=== PATIENT | male | born 1990 | race African-American/Black ===

== ENCOUNTER 2017-01-14 04:11 | Inpatient (IN) | payer MEDICAID ==
[~2017-01-14] VITALS: Ht 165.1 cm; Wt 68.7 kg
[~2017-01-14 04:11] MED LIST: LAMO100 PO; RISP1 PO
[2017-01-14] MEDS ORDERED: ZOLPIDEM TARTRATE 10 MG TABLET PO PRN (06:00)
[2017-01-14] MEDS ORDERED: QUEtiapine FUMARATE 100 MG TABLET PO PRN (06:00)
[2017-01-14] MEDS ORDERED: LORazepam 2 MG TABLET PO PRN (06:00)
[2017-01-14 06:20] VITALS: BP 112/69
[2017-01-14] MEDS ORDERED: INFLUENZA VIRUS VACCINE QVS 2016-17 (3YR+)/PF 60 MCG/0.5 ML SYRINGE IM ONE (06:30)
[2017-01-14] MEDS ORDERED: ONDANSETRON HCL 4 MG TABLET PO PRN (09:45)
[2017-01-14] MEDS ORDERED: PETROLATUM,WHITE 71 GM JELLY TP PRN (09:45)
[2017-01-14] MEDS ORDERED: ACETAMINOPHEN 325 MG TABLET PO PRN (09:45)
[2017-01-14] MEDS ORDERED: CloNIDine HCL 0.1 MG TABLET PO PRN (09:45)
[2017-01-14] MEDS ORDERED: MAGNESIUM HYDROXIDE SUSPENSION 30 ML UDCUP PO PRN (09:45)
[2017-01-14] MEDS ORDERED: LOPERAMIDE HCL 2 MG CAPSULE PO PRN (09:45)
[2017-01-14] MEDS ORDERED: ALBUTEROL SULFATE HFA 90 MCG/PUFF 8 GM INHALER IH PRN (09:45)
[2017-01-14] MEDS ORDERED: MAG HYDROX/AL HYDROX/SIMETH ES 30 ML SUSPENSION UDCUP PO PRN (09:45)
[2017-01-14] MEDS ORDERED: BACITRACIN 28.4 GM OINTMENT TP PRN (09:45)
[2017-01-14] MEDS ORDERED: BENZOCAINE/MENTHOL LOZENGE MM PRN (09:45)
[2017-01-14] MEDS ORDERED: IBUPROFEN 600 MG TABLET PO PRN (09:45)
[2017-01-14] MEDS: LamoTRIgine 100 MG TABLET PO SCH (09:54)
[2017-01-14] MEDS: RisperiDONE 1 MG TABLET PO SCH ×2 (09:54→16:22)
[2017-01-14 16:00] VITALS: BP 114/69
[2017-01-15 06:42] VITALS: BP 99/60
[2017-01-15 08:07] VITALS: BP 118/59
[2017-01-15] MEDS: RisperiDONE 1 MG TABLET PO SCH ×2 (09:29→16:42)
[2017-01-15] MEDS: LamoTRIgine 100 MG TABLET PO SCH (09:29)
[2017-01-15 16:37] VITALS: BP 111/60
[2017-01-16 00:12] VITALS: BP 106/60
[2017-01-16 08:12] VITALS: BP 125/73
[2017-01-16 08:37] LABS: BASOPHILS # (AUTO) 0.04 K/uL (0.00-0.20); BASOPHILS % (AUTO) 0.5 % (0.0-2.0); EOSINOPHILS % (AUTO) 2.61 % (1.0-6.0); HEMATOCRIT 49.2 % (41-53); LYMPHOCYTES # (AUTO) 2.8 K/uL (1.0-4.8); LYMPHOCYTES % (AUTO) 36.8 % (22.0-44.0); MEAN CORPUSCULAR HEMOGLOBIN 29.4 pg (26.0-34.0); MEAN CORPUSCULAR HGB CONC 32.6 G/dL (31.0-37.0); MEAN CORPUSCULAR VOLUME 90 fL (80-100); MONOCYTES # (AUTO) 0.9 K/uL (0.1-1.0); MONOCYTES % (AUTO) 12.2 % (2.0-9.0); NEUTROPHILS # (AUTO) 3.7 K/uL (1.8-7.7); NEUTROPHILS % (AUTO) 47.9 % (40.0-70.0); PLATELET COUNT (AUTO) 215 K/uL (150-450); RED BLOOD CELL COUNT(AUTO) 5.45 MIL/uL (4.50-5.90); RED CELL DISTRIBUTION WIDTH 14.9 % (11.5-14.5); WHITE BLOOD COUNT (AUTO) 7.7 K/uL (4.5-11.0)
[2017-01-16 09:07] LABS: ALANINE AMINOTRANSFERASE 17 U/L (12-78); ALBUMIN 3.3 g/dL (3.4-5.0); ANION GAP 7 mmol/L (8-16); ASPARTATE AMINOTRANSFERASE 12 U/L (15-37); BILIRUBIN,TOTAL 0.5 mg/dL (0.1-1.0); CALCIUM, TOTAL 8.5 mg/dL (8.8-10.5); CARBON DIOXIDE 28 mmol/L (22-29); CHLORIDE 105 mmol/L (98-107); GLOMERULAR FILTR. RATE CALC > 60 mL/min (>60); POTASSIUM 3.8 mmol/L (3.5-5.1); SODIUM SERUM 140 mmol/L (136-145); THYROID STIMULATING HORMONE 1.19 uIU/mL (0.36-3.74); TOTAL PROTEIN, SERUM 6.7 g/dL (6.4-8.2); UREA NITROGEN, BLOOD 14 mg/dL (7-18)
[2017-01-16 09:20] LABS: HEMOGLOBIN A1C 5.5 % (4.5-6.2)
[2017-01-16] MEDS: RisperiDONE 1 MG TABLET PO SCH ×2 (09:24→16:51)
[2017-01-16] MEDS: LamoTRIgine 100 MG TABLET PO SCH (09:24)
[2017-01-16 16:00] VITALS: BP 117/70
[2017-01-17 00:25] VITALS: BP 100/61
[2017-01-17 08:39] VITALS: BP 100/69
[2017-01-17] MEDS: RisperiDONE 1 MG TABLET PO SCH ×2 (08:49→16:49)
[2017-01-17] MEDS: LamoTRIgine 100 MG TABLET PO SCH (08:49)
[2017-01-17 16:24] VITALS: BP 120/75
[2017-01-18 01:27] VITALS: BP 100/63
[2017-01-18 09:04] VITALS: BP 120/65
[2017-01-18] MEDS: RisperiDONE 1 MG TABLET PO SCH (09:09)
[2017-01-18] MEDS: LamoTRIgine 100 MG TABLET PO SCH (09:09)
== END 2017-01-18 12:10 | disposition home or self-care (01) | DRG 750 ==
LOC: EDSTATUS 05:16 → B2S 06:06
PROVIDERS: ADMIT Psychiatry & Neurology Psychiatry; ATTEND Psychiatry & Neurology Psychiatry
DX: F25.0 Schizoaffective disorder, bipolar type (principal); R45.851 Suicidal ideations; Z59.0 Homelessness; F41.9 Anxiety disorder, unspecified; K59.00 Constipation, unspecified; F17.210 Nicotine dependence, cigarettes, uncomplicated; Z72.89 Other problems related to lifestyle; Z71.6 Tobacco abuse counseling; Z71.41 Alcohol abuse counseling and surveillance of alcoholic; Z28.21 Immunization not carried out because of patient refusal
CPT/HCPCS: 83036; 84439; 84443

== ENCOUNTER 2018-09-26 05:58 | Emergency (ER) | payer MEDICAID ==
[~2018-09-26] VITALS: Ht 167.6 cm; Wt 72.7 kg
[~2018-09-26 05:58] MED LIST changes: +DIVA500T52 PO; -RISP1 PO; +RISP2 PO
[2018-09-26] MEDS ORDERED: 0.9% SODIUM CHLORIDE 5 ML NEB SOLUTION NEB ONE (06:53)
[2018-09-26] MEDS ORDERED: PredniSONE 20 MG TABLET PO ONE (07:00)
[2018-09-26] MEDS ORDERED: ALBUTEROL SULFATE 2.5 MG/0.5 ML NEB SOLUTION NEB ONE (07:00)
[2018-09-26] MEDS ORDERED: IPRATROPIUM BROMIDE 0.5 MG/2.5 ML NEB SOLUTION NEB ONE (07:00)
[2018-09-26 07:28] VITALS: BP 118/77
== END 2018-09-26 07:48 | disposition home or self-care (01) ==
LOC: EMS 05:58
DX: J45.909 Unspecified asthma, uncomplicated (principal); F20.9 Schizophrenia, unspecified; F12.90 Cannabis use, unspecified, uncomplicated; F17.210 Nicotine dependence, cigarettes, uncomplicated; Z88.8 Allergy status to other drugs, medicaments and biological substances
CPT/HCPCS: 94640; 99283; J7512